=== PATIENT | male | born 1985 | race Caucasian/White ===

== ENCOUNTER 2017-01-28 17:02 | Emergency (ER) | payer BC ==
[2017-01-28] MEDS ORDERED: Sodium Chloride 0.9% 10 ML Syringe FLUSH PRN (18:14)
[2017-01-28] MEDS ORDERED: Sodium Chloride 0.9% 1,000 ML IV ONE (18:14)
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
== END 2017-01-28 21:00 | disposition home or self-care (01) ==
LOC: JD.ED 17:02
DX: F10.120 Alcohol abuse with intoxication, uncomplicated (principal); I10 Essential (primary) hypertension; Z79.899 Other long term (current) drug therapy
CPT/HCPCS: 36415; 80053; 85025; 96360; 99284; G0480; J7040

== ENCOUNTER 2017-06-27 06:31 | Emergency (ER) | payer BC ==
[2017-06-27] MEDS ORDERED: Sodium Chloride 0.9% 500 ML IV ONE ×2 (07:24→08:30)
[2017-06-27] MEDS ORDERED: Ondansetron 4 MG/2 ML SDV IVPUSH ONE (07:24)
[2017-06-27] MEDS ORDERED: LORazepam 2 MG/ML SDV IVPUSH ONE (07:24)
[2017-06-27] MEDS ORDERED: Sodium Chloride 0.9% 10 ML Syringe FLUSH PRN (07:25)
--- NOTE | 2017-06-27 08:26 | EDM.PDOC ---
ED HPI GENERAL MEDICAL PROBLEM - General Chief Complaint: General Stated Complaint: SYNCOPE THIS AM/SHAKING Time Seen by Provider: 06/27/17 07:10 Source of Information: Reports: Patient, RN Notes Reviewed - History of Present Illness INITIAL COMMENTS - FREE TEXT/NARRATIVE: 32-year-old male comes in feeling weak, dizzy, shaky. He left for work shortly before 6. 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 Ona like he was about to pass out. He did manage to send a message to his . When she arrived he was pale, shaky, nauseated, vomited once. No chest pain but he was somewhat short of breath. He did get some numbness and tingling of his hands and feet. No major abdominal pain or cramping at this time. He has not been coughing any more than usual. He was concerned about possible stroke. He has no headache, major neck or back discomfort. - Related Data Allergies Allergy/AdvReac Type Severity Reaction Status Date / Time No Known Allergies Allergy Verified 06/27/17 06:35 Home Meds: Home Meds Lisinopril/Hydrochlorothiazide [Lisinopril-Hctz 10-12.5 mg Tab] 1 tab PO DAILY 06/27/17 [History] Sertraline HCl 150 mg PO DAILY 06/27/17 [History] hydrOXYzine Pamoate [Hydroxyzine Pamoate] 25 mg PO DAILY 06/27/17 [History] Past Medical History Cardiovascular History: Reports: Hypertension Respiratory History: Reports: Asthma Psychiatric History: Reports: Anxiety Social & Family History - Tobacco Use Smoking Status *Q: Unknown Ever Smoked - Recreational Drug Use Recreational Drug Use: Yes Drug Use in Last 12 Months: No ED ROS GENERAL - Review of Systems Review Of Systems: See Below Constitutional: Denies: Fever, Chills HEENT: Denies: Sinus Problem, Throat Pain Respiratory: Reports: Shortness of Breath (No better) Cardiovascular: Denies: Chest Pain GI/Abdominal: Reports: Nausea, Vomiting. Denies: Abdominal Pain Musculoskeletal: Denies: Neck Pain, Arm Pain, Back Pain Skin: Denies: Rash Neurological: Reports: Dizziness, Numbness (Bilateral hands and feet), Weakness (Generalized). Denies: Headache ED EXAM, GENERAL - Physical Exam Exam: See Below General Appearance: Alert, Anxious, Moderate Distress Eye Exam: Bilateral Eye: PERRL Throat/Mouth: Normal Inspection Head: No: Facial Swelling Neck: Supple, Full Range of Motion Respiratory/Chest: No Respiratory Distress, Lungs Clear, Normal Breath Sounds Cardiovascular: Regular Rate, Rhythm GI/Abdominal: Soft, Non-Tender Extremities: Normal Inspection, Normal Range of Motion Neurological: Alert, Oriented, No Motor/Sensory Deficits, Other (Mild resting tremor, finger to nose without difficulty) Skin Exam: Warm, Dry, Normal Color EKG INTERPRETATION EKG Date: 06/27/17 Rhythm: NSR [place]: Normal P-Wave: Present QRS: Other (Slight ST elevation in V2 and V3) Course - Vital Signs Last Recorded V/S: Last Vital Signs Temp 97.5 F 06/27/17 06:40 Pulse 90 06/27/17 06:40 Resp 18 06/27/17 06:40 BP 149/90 H 06/27/17 06:40 Pulse Ox 98 06/27/17 06:40 - Orders/Labs/Meds Orders: Active Orders 24 hr Category Date Time Status EKG 12 Lead [EKG Documentation Completion] [RC] STAT Care 06/27/17 07:24 Active Peripheral IV Care [RC] . DIRECTED Care 06/27/17 07:25 Active Sodium Chloride 0.9% [Saline Flush] Med 06/27/17 07:25 Active 10 ml FLUSH ASDIRECTED PRN Peripheral IV Insertion Adult [OM.PC] Stat Oth 06/27/17 07:24 Ordered Medication Orders Sodium Chloride (Saline Flush) 10 ml FLUSH ASDIRECTED PRN PRN Reason: Keep Vein Open Last Admin: 06/27/17 07:38 Dose: 10 ml Labs: Laboratory Tests 06/27/17 06/27/17 Range/Units 07:38 07:38 WBC 10.75 H (4.23-9.07) K/mm3 RBC 5.69 (4.63-6.08) M/mm3 Hgb 17.0 (13.7-17.5) gm/L Hct 47.6 (40.1-51.0) % MCV 83.7 (79.0-92.2) fl MCH 29.9 (25.7-32.2) pg MCHC 35.7 H (32.2-35.5) g/dl RDW Std Deviation 40.2 (35.1-43.9) fL Plt Count 241 (163-337) K/mm3 MPV 8.5 L (9.4-12.3) fl Neut % (Auto) 81.9 H (34.0-67.9) % Lymph % (Auto) 9.0 L (21.8-53.1) % [place] % (Auto) 8.3 (5.3-12.2) % Eos % (Auto) 0.2 L (0.8-7.0) Baso % (Auto) 0.3 (0.1-1.2) % Neut # (Auto) 8.81 H (1.78-5.38) K/mm3 Lymph # (Auto) 0.97 L (1.32-3.57) K/mm3 [place] # (Auto) 0.89 H (0.30-0.82) K/mm3 Eos # (Auto) 0.02 L (0.04-0.54) K/mm3 Baso # (Auto) 0.03 (0.01-0.08) K/mm3 Manual Slide Review Abnormal smear Sodium 136 (136-145) mEq/L Potassium 3.5 (3.5-5.1) mEq/L Chloride 98 (98-107) mEq/L Carbon Dioxide 22 (21-32) mEq/L Anion Gap 19.5 H (5-15) BUN 9 (7-18) mg/dL Creatinine 1.0 (0.7-1.3) mg/dL Est Cr Clr Drug Dosing TNP Estimated GFR (MDRD) > 60 (>60) mL/min BUN/Creatinine Ratio 9.0 L (14-18) Glucose 134 H (74-106) mg/dL Calcium 9.3 (8.5-10.1) mg/dL Total Bilirubin 0.8 (0.2-1.0) mg/dL AST 77 H (15-37) U/L ALT 84 H (16-63) U/L Alkaline Phosphatase 117 H (46-116) U/L Total Protein 8.1 (6.4-8.2) g/dl Albumin 4.0 (3.4-5.0) g/dl Globulin 4.1 gm/dL Albumin/Globulin Ratio 1.0 (1-2) Meds: Medications Generic Name Dose Route Start Last Admin Trade Name Freq PRN Reason Stop Dose Admin Sodium Chloride 10 ml 06/27/17 07:25 06/27/17 07:38 Saline Flush FLUSH 10 ml ASDIRECTED PRN Administration Keep Vein Open Discontinued Medications Generic Name Dose Route Start Last Admin Trade Name Eulalio PRN Reason Stop Dose Admin Sodium Chloride 500 mls @ 999 mls/hr 06/27/17 07:24 06/27/17 07:45 Normal Saline IV 06/27/17 07:54 999 mls/hr .BOLUS ONE Administration Sodium Chloride 500 mls @ 999 mls/hr 06/27/17 08:30 Normal Saline IV 06/27/17 09:00 .BOLUS ONE Lorazepam 0.5 mg 06/27/17 07:24 06/27/17 07:43 Ativan IVPUSH 06/27/17 07:25 0.5 mg ONETIME ONE Administration Ondansetron HCl 4 mg 06/27/17 07:24 06/27/17 07:40 Zofran IVPUSH 06/27/17 07:25 4 mg ONETIME ONE Administration - Re-Assessments/Exams Free Text/Narrative Re-Assessment/Exam: 06/27/17 09:01 Labs came back showing that he was moderately dehydrated, bicarbonate low anion gap elevated, LFTs also mildly elevated. We have given 1 L of fluid. He was worried about possible stroke do not see any sign of that he likely had syncope or near syncope followed by panic attack. EKG was normal, cardiac monitors been showing sinus rhythm rate in the 90s, discharge instructions as documented. Departure - Departure Time of Disposition: 09:03 Disposition: Home, Self-Care 01 Clinical Impression: Panic attack Syncope Qualifiers: Syncope type: unspecified Qualified Code(s): R55 - Syncope and collapse - Discharge Information Instructions: Panic Attacks, [id number], Syncope, [id number] Referrals: Charissa Ochoa PA-C [Primary Care Provider] - Forms: ED Department Discharge, ED Return to Work/School Form Additional Instructions: Rest, continue to drink plenty of water, try eat regular healthy balanced diet, your regular exercise program, continue current medications as prescribed, follow up with Chairssa at clinic later this week or early next week. Return to ED as needed if symptoms worsening in any way. - My Orders Last 24 Hours: My Active Orders 06/27/17 07:24 EKG 12 Lead [EKG Documentation Completion] [RC] STAT Peripheral IV Insertion Adult [OM.PC] Stat 06/27/17 07:25 Peripheral IV Care [RC] . DIRECTED Sodium Chloride 0.9% [Saline Flush] 10 ml FLUSH ASDIRECTED PRN - Assessment/Plan Last 24 Hours: My Active Orders 06/27/17 07:24 EKG 12 Lead [EKG Documentation Completion] [RC] STAT Peripheral IV Insertion Adult [OM.PC] Stat 06/27/17 07:25 Peripheral IV Care [RC] . DIRECTED Sodium Chloride 0.9% [Saline Flush] 10 ml FLUSH ASDIRECTED PRN
== END 2017-06-27 09:15 | disposition home or self-care (01) ==
LOC: JD.ED 06:31
DX: R55 Syncope and collapse (principal); F41.0 Panic disorder [episodic paroxysmal anxiety]; I10 Essential (primary) hypertension; Z79.899 Other long term (current) drug therapy
CPT/HCPCS: 36415; 80053; 82962; 85025; 93005; 96361; 96374; 96375; 99284; J2060; J2405; J7040; J7050; 93010

== ENCOUNTER 2019-12-17 17:39 | Emergency (ER) | payer SELFPAY ==
--- NOTE | 2019-12-17 18:10 | EDM.PDOC ---
ED HPI GENERAL MEDICAL PROBLEM - General Chief Complaint: Behavioral/Psych Stated Complaint: DEPRESSION Time Seen by Provider: 12/17/19 17:56 Source of Information: Reports: Patient, RN Notes Reviewed History Limitations: Reports: No Limitations - History of Present Illness INITIAL COMMENTS - FREE TEXT/NARRATIVE: Patient is a 34 year old male who is brought to the ED for his depression. Patient notes he was brought here by the police. He states that he is also acutely intoxicated from alcohol. He notes that he is going through a divorce, that is rather rough. His soon-to-be ex- keeps telling him that he should "just take himself out". He states that he did think about this today, but he had no plans to do as such. He notes that he works in the [employer], and works 8 days in a row and then comes home 6 days and drinks heavily when he is home. He drinks about a pint of whiskey a day along with a 12 pack of beer. Patient states that he can stop drinking. He is usually just fine with that too. He does have a history of depression, and is on Ativan and Wellbutrin, he ran out of his medications a few days ago, but recently refilled these and took some ta blets of his Ativan this morning. He states that he knows he is depressed, but he does not want to be dependent on medications, he states that he would like to get off of these at some point. Patient states that he is not suicidal although he did have thoughts of this recently. He notes that his last alcohol intake was at about 3 PM. He does state that when he is not drinking, he usually does not think about killing himself. He is not complaining of any fevers or chills, cough or shortness of breath, he does have a history of asthma, but states his albuterol usually takes care of of any shortness of breath that he does get. - Related Data Allergies Allergy/AdvReac Type Severity Reaction Status Date / Time No Known Allergies Allergy Verified 12/17/19 17:52 Home Meds: Home Meds Lisinopril/Hydrochlorothiazide [Lisinopril-Hctz 10-12.5 mg Tab] 1 tab PO DAILY 06/27/17 [History] Albuterol [Proventil HFA] 1 inh INH Q4HR PRN 12/17/19 [History] LORazepam [Ativan] 0.5 mg PO BID 12/17/19 [History] buPROPion [Wellbutrin] 0 mg PO DAILY 12/17/19 [History] Past Medical History Cardiovascular History: Reports: Hypertension Respiratory History: Reports: Asthma Psychiatric History: Reports: Addiction, Anxiety, Depression Endocrine/Metabolic History: Reports: Obesity/BMI 30+ Social & Family History - Tobacco Use Smoking Status *Q: Never Smoker - Caffeine Use Caffeine Use: Reports: Energy Drinks - Recreational Drug Use Recreational Drug Use: No ED ROS GENERAL - Review of Systems Review Of Systems: Comprehensive ROS is negative, except as noted in HPI. ED EXAM, GENERAL - Physical Exam Exam: See Below Exam Limited By: No Limitations General Appearance: Alert, WD/WN, No Apparent Distress (pt is acutely intoxicated but answers appropriately) Eye Exam: Bilateral Eye: EOMI, Normal Inspection Respiratory/Chest: No Respiratory Distress, Lungs Clear, Normal Breath Sounds, No Accessory Muscle Use, Chest Non-Tender Cardiovascular: Normal Peripheral Pulses, Regular Rate, Rhythm, No Edema, No Murmur Peripheral Pulses: 2+: Radial (L), Radial (R) GI/Abdominal: Normal Bowel Sounds, Soft, Non-Tender, No Distention, No Mass Extremities: Normal Inspection, Normal Capillary Refill Neurological: Alert, Oriented, No Motor/Sensory Deficits Psychiatric: Normal Affect, Normal Mood Skin Exam: Warm, Dry, Intact, Normal Color, No Rash Course - Vital Signs Last Recorded V/S: Last Vital Signs Temp 97.9 F 12/17/19 17:48 Pulse 113 H 12/17/19 17:48 Resp 18 12/17/19 17:48 BP 144/97 H 12/17/19 17:48 Pulse Ox 95 12/17/19 17:48 - Orders/Labs/Meds Orders: Active Orders 24 hr Category Date Time Status Peripheral IV Care [RC] . DIRECTED Care 12/17/19 19:02 Ordered Sodium Chloride 0.9% [Normal Saline] 1,000 ml Med 12/17/19 19:02 Ordered IV ONETIME Sodium Chloride 0.9% [Saline Flush] Med 12/17/19 19:02 Ordered 10 ml FLUSH ASDIRECTED PRN Peripheral IV Insertion Adult [OM.PC] Stat Oth 12/17/19 19:02 Ordered Medication Orders Sodium Chloride (Normal Saline) 1,000 mls @ 200 mls/hr IV ONETIME ONE Stop: 12/18/19 00:01 Last Admin: 12/17/19 19:20 Dose: 200 mls/hr Documented by: [email or web address] Sodium Chloride (Saline Flush) 10 ml FLUSH ASDIRECTED PRN PRN Reason: Keep Vein Open Last Admin: 12/17/19 19:20 Dose: 10 ml Documented by: [id number] Labs: Laboratory Tests 12/17/19 12/17/19 12/17/19 Range/Units 19:20 19:20 19:20 WBC 7.11 (4.23-9.07) K/mm3 RBC 5.93 (4.63-6.08) M/mm3 Hgb 17.6 H (13.7-17.5) gm/dl Hct 51.3 H (40.1-51.0) % MCV 86.5 (79.0-92.2) fl MCH 29.7 (25.7-32.2) pg MCHC 34.3 (32.2-35.5) g/dl RDW Std Deviation 43.1 (35.1-43.9) fL Plt Count 286 (163-337) K/mm3 MPV 8.7 L (9.4-12.3) fl Neut % (Auto) 40.9 (34.0-67.9) % Lymph % (Auto) 44.3 (21.8-53.1) % Bucks % (Auto) 13.1 H (5.3-12.2) % Eos % (Auto) 1.0 (0.8-7.0) Baso % (Auto) 0.6 (0.1-1.2) % Neut # (Auto) 2.91 (1.78-5.38) K/mm3 Lymph # (Auto) 3.15 (1.32-3.57) K/mm3 Bucks # (Auto) 0.93 H (0.30-0.82) K/mm3 Eos # (Auto) 0.07 (0.04-0.54) K/mm3 Baso # (Auto) 0.04 (0.01-0.08) K/mm3 PT 10.9 (9.7-11.7) SECONDS INR 1.02 Sodium 144 (136-145) mEq/L Potassium 3.3 L (3.5-5.1) mEq/L Chloride 104 (98-107) mEq/L Carbon Dioxide 26 (21-32) mEq/L Anion Gap 17.3 H (5-15) BUN 5 L (7-18) mg/dL Creatinine 1.0 (0.7-1.3) mg/dL Est Cr Clr Drug Dosing 119.88 mL/min Estimated GFR (MDRD) > 60 (>60) mL/min BUN/Creatinine Ratio 5.0 L (14-18) Glucose 139 H (74-106) mg/dL Calcium 8.7 (8.5-10.1) mg/dL Magnesium 1.6 L (1.8-2.4) mg/dl Total Bilirubin 0.4 (0.2-1.0) mg/dL AST 70 H (15-37) U/L ALT 182 H (16-63) U/L Alkaline Phosphatase 109 (46-116) U/L Total Protein 7.9 (6.4-8.2) g/dl Albumin 3.6 (3.4-5.0) g/dl Globulin 4.3 gm/dL Albumin/Globulin Ratio 0.8 L (1-2) Ethyl Alcohol 0.34 (0.00) gm% Meds: Medications Generic Name Dose Route Start Last Admin Trade Name Freq PRN Reason Stop Dose Admin Sodium Chloride 1,000 mls @ 200 mls/hr 12/17/19 19:02 12/17/19 19:20 Normal Saline IV 12/18/19 00:01 200 mls/hr ONETIME ONE Administration Sodium Chloride 10 ml 12/17/19 19:02 12/17/19 19:20 Saline Flush FLUSH 10 ml ASDIRECTED PRN Administration Keep Vein Open Discontinued Medications Generic Name Dose Route Start Last Admin Trade Name Freq PRN Reason Stop Dose Admin Folic Acid 1 mg 12/17/19 19:02 12/17/19 19:20 Folic Acid PO 12/17/19 19:03 1 mg ONETIME ONE Administration Lorazepam 1 mg 12/17/19 19:02 12/17/19 19:20 Ativan IVPUSH 12/17/19 19:03 1 mg ONETIME ONE Administration Metoclopramide HCl 10 mg 12/17/19 19:02 10/06/20 19:20 Reglan IVPUSH 12/17/19 19:03 10 mg ONETIME ONE Administration Thiamine HCl 100 mg 12/17/19 19:02 12/17/19 19:20 Vitamin B-1 PO 12/17/19 19:03 100 mg ONETIME ONE Administration - Re-Assessments/Exams Free Text/Narrative Re-Assessment/Exam: 12/17/19 19:09 Patient presents to the ED for the evaluation of his depression and alcoholism. He is aware that drinking alcohol is a problem for him, he would like to stop at some point, but he would also like to get off of his depression medications, I told him that it is a good idea to keep using these while he is having this "rough patch" and going through his divorce. He seems to agree. At this time we will have an IV placed, give him some fluids, check basic labs, give him 1 mg Ativan, something for nausea, and monitor him for a few hours. States he does not really have anywhere to go tonight. 12/17/19 20:58 Patient was re-assessed at bedside, he is sleeping rather hard. I have told nursing staff that if he wakes up and wants to go home, that is fine with me. His labs had no worrisome abnormalities. Departure - Departure Time of Disposition: 20:59 Disposition: Home, Self-Care 01 Condition: Good Clinical Impression: Alcohol intoxication Qualifiers: Complication of substance-induced condition: uncomplicated Qualified Code(s): F10.920 - Alcohol use, unspecified with intoxication, uncomplicated Depression Qualifiers: Depression Type: unspecified Qualified Code(s): F32.9 - Major depressive disorder, single episode, unspecified - Discharge Information *PRESCRIPTION DRUG MONITORING PROGRAM REVIEWED*: No *COPY OF PRESCRIPTION DRUG MONITORING REPORT IN PATIENT BAM: No Instructions: Living With Depression Referrals: Charissa Ochoa PA-C [Primary Care Provider] - Forms: ED Department Discharge Additional Instructions: You were evaluated in the ER today for your alcohol intoxication and your depression. You are not deemed a harm to yourself at this time although you are intoxicated from alcohol. You are able to answer questions appropriately at this time. I do recommend you go home, try to refrain from drinking tonight, and for the next few days as well, to see if this helps lighten your mood a little. Please continue to take all your prior medications as previously prescribed, until you get through this "rough patch". Recommend you keep talking to your counselor weekly, as this seems to help you with your feelings. Please return to the ER at any time if your symptoms change or worsen. Sepsis Event Note (ED) - Evaluation Sepsis Screening Result: No Definite Risk - Focused Exam Vital Signs: Vital Signs Temp Pulse Resp BP Pulse Ox 12/17/19 17:48 97.9 F 113 H 18 144/97 H 95 - My Orders Last 24 Hours: My Active Orders 12/17/19 19:02 Peripheral IV Care [RC] . DIRECTED Sodium Chloride 0.9% [Normal Saline] 1,000 ml IV ONETIME Sodium Chloride 0.9% [Saline Flush] 10 ml FLUSH ASDIRECTED PRN Peripheral IV Insertion Adult [OM.PC] Stat - Assessment/Plan Last 24 Hours: My Active Orders 12/17/19 19:02 Peripheral IV Care [RC] . DIRECTED Sodium Chloride 0.9% [Normal Saline] 1,000 ml IV ONETIME Sodium Chloride 0.9% [Saline Flush] 10 ml FLUSH ASDIRECTED PRN Peripheral IV Insertion Adult [OM.PC] Stat
[2019-12-17] MEDS ORDERED: Sodium Chloride 0.9% 10 ML Syringe FLUSH PRN (19:02)
[2019-12-17] MEDS ORDERED: Folic Acid 1 MG Tab PO ONE (19:02)
[2019-12-17] MEDS ORDERED: Thiamine 100 MG Tab PO ONE (19:02)
[2019-12-17] MEDS ORDERED: LORazepam 2 MG/ML SDV IVPUSH ONE (19:02)
[2019-12-17] MEDS ORDERED: Metoclopramide 10 MG/2 ML SDV IVPUSH ONE (19:02)
[2019-12-17] MEDS ORDERED: Sodium Chloride 0.9% 1,000 ML IV ONE (19:02)
== END 2019-12-18 00:10 | disposition home or self-care (01) ==
LOC: JD.ED 17:39
DX: F32.9 Major depressive disorder, single episode, unspecified (principal); F10.120 Alcohol abuse with intoxication, uncomplicated; Y90.8 Blood alcohol level of 240 mg/100 ml or more; I10 Essential (primary) hypertension; J45.909 Unspecified asthma, uncomplicated; F41.9 Anxiety disorder, unspecified; E66.9 Obesity, unspecified; Z68.32 Body mass index [BMI] 32.0-32.9, adult
CPT/HCPCS: 36415; 80053; 80307; 83735; 85025; 85610; 96361; 96374; 96375; 99284; A9270; J2060; J2765; J7030

== ENCOUNTER 2021-12-29 07:57 | Emergency (ER) | payer SELFPAY | END 2021-12-29 09:16 | LOC: JD.ED 07:57 | DX: Z53.21 Procedure and treatment not carried out due to patient leaving prior to being seen by health care provider (principal) ==

== ENCOUNTER 2021-12-31 15:43 | Emergency (ER) | payer SELFPAY ==
[2021-12-31] MEDS ORDERED: Sodium Chloride 0.9% 1,000 ML IV ONE ×2 (18:08→19:14)
[2021-12-31] MEDS ORDERED: LORazepam 2 MG/ML SDV IVPUSH ONE (18:08)
[2021-12-31] MEDS ORDERED: Sodium Chloride 0.9% 10 ML Syringe FLUSH PRN (18:08)
[2021-12-31] MEDS ORDERED: Potassium Chloride 20 MEQ Tab.ER PO ONE (20:13)
== END 2021-12-31 21:37 | disposition home or self-care (01) ==
LOC: JD.ED 15:43
DX: F10.930 Alcohol use, unspecified with withdrawal, uncomplicated (principal); I10 Essential (primary) hypertension; E66.9 Obesity, unspecified; Z68.32 Body mass index [BMI] 32.0-32.9, adult
CPT/HCPCS: 36415; 73030; 80053; 80143; 80179; 80306; 80307; 81001; 83735; 84443; 85025; 93005; 96361; 96374; 99285; A9270; J2060; J3490; J7030

== ENCOUNTER 2023-06-18 11:21 | Emergency (ER) | payer OTHER ==
[2023-06-18] MEDS: Acetaminophen 325 MG Tab PO ONE (12:39)
[2023-06-18 12:44] LABS: BASOPHILS PERCENT AUTO 0.7 % (0.0-1.0); EOSINOPHILS ABSOLUTE AUTO 0.1 K/mm3 (0.0-0.4); EOSINOPHILS PERCENT AUTO 0.8 % (0.0-6.0); HEMATOCRIT 49.4 % (42.0-52.0); HEMOGLOBIN 16.9 gm/dl (14.0-18.0); IMMATURE GRAN ABSOLUTE AUTO 0.02 K/mm3 (0.00-0.05); IMMATURE GRAN PERCENT AUTO 0.3 % (0.0-0.4); LYMPHOCYTES ABSOLUTE AUTO 1.8 K/mm3 (1.0-4.8); LYMPHOCYTES PERCENT AUTO 28.7 % (24.0-44.0); MEAN CORPUSCULAR HEMOGLOBIN 29.5 pg (28.0-32.0); MEAN CORPUSCULAR HGB CONC 34.2 g/dl (32.0-36.0); MEAN CORPUSCULAR VOLUME 86.2 fl (83.0-99.0); MEAN PLATELET VOLUME 8.5 fl (9.4-12.4); MONOCYTES ABSOLUTE AUTO 0.4 K/mm3 (0.0-0.8); MONOCYTES PERCENT AUTO 7.2 % (0.0-8.0); NEUTROPHILS ABSOLUTE AUTO 3.8 K/mm3 (1.8-7.7); NEUTROPHILS PERCENT AUTO 62.3 % (41.0-71.0); PLATELET COUNT,PLT 302 K/mm3 (150-400); RED BLOOD CELL COUNT 5.73 M/mm3 (4.52-5.90); WHITE BLOOD CELL COUNT,WBC 6.13 K/mm3 (3.9-11.3)
[2023-06-18 13:11] LABS: A/G RATIO 0.9 (1-2); ALBUMIN 3.6 g/dl (3.4-5.0); ANION GAP 16.8 (5-15); BILIRUBIN TOTAL 0.6 mg/dL (0.2-1.0); BUN/CREATININE RATIO 6.3 (14-18); CALCIUM 8.8 mg/dL (8.5-10.1); CREATININE 0.8 mg/dL (0.7-1.3); EST CRCL DRUG DOSING (CG) 144.14 mL/min; POTASSIUM,K 3.8 mEq/L (3.5-5.1); PROTEIN TOTAL,TP 7.6 g/dl (6.4-8.2)
[2023-06-18] MEDS: Sodium Chloride 0.9% 100 ML IV SCH (13:52)
[2023-06-18] MEDS: Iopamidol 755 Mg/ML 100 ML Bottle IVPUSH ONE (13:52)
[2023-06-18] MEDS: Sodium Chloride 0.9% 1,000 ML IV SCH (14:40)
[2023-06-18] MEDS: Magnesium Sulfate/Water 2 GM in Premix Bag 1 BAG IV ONE (14:41)
== END 2023-06-18 16:05 | disposition home or self-care (01) ==
LOC: JD.ED 11:21
DX: R55 Syncope and collapse (principal); E83.42 Hypomagnesemia; I10 Essential (primary) hypertension; E66.9 Obesity, unspecified; Z68.29 Body mass index [BMI] 29.0-29.9, adult; Z79.899 Other long term (current) drug therapy
CPT/HCPCS: 36415; 70450; 71275; 80053; 83735; 84484; 85025; 85379; 93005; 96365; 99284; A9270; J3475; J3490; J7030; Q9967; 93010

== ENCOUNTER 2023-06-20 17:47 | Emergency (ER) | payer OTHER ==
[2023-06-20 18:39] LABS: BARBITURATE SCREEN,URINE NEGATIVE (CUTOFF=200); BENZODIAZEPINES SCREEN,URINE NEGATIVE (CUTOFF=150); BUPRENORPHINE SCREEN,URINE NEGATIVE (CUTOFF=10); METHADONE SCREEN, URINE NEGATIVE (CUT0FF=200); METHAMPHETAMINES SCREEN, URINE NEGATIVE (CUTOFF=500); OXYCODONE SCREEN,URINE NEGATIVE (CUT0FF=100); THC SCREEN,URINE 20 NG/ML NEGATIVE (CUTOFF=50)
[2023-06-20 18:45] LABS: AMPHETAMINES SCREEN, URINE NEGATIVE (CUTOFF=500)
[2023-06-20 18:54] LABS: HEMATOCRIT 49.1 % (42.0-52.0); HEMOGLOBIN 16.9 gm/dl (14.0-18.0); MEAN CORPUSCULAR HEMOGLOBIN 29.2 pg (28.0-32.0); MEAN CORPUSCULAR HGB CONC 34.4 g/dl (32.0-36.0); MEAN CORPUSCULAR VOLUME 84.8 fl (83.0-99.0); MEAN PLATELET VOLUME 8.2 fl (9.4-12.4); PLATELET COUNT,PLT 192 K/mm3 (150-400); RED BLOOD CELL COUNT 5.79 M/mm3 (4.52-5.90); WHITE BLOOD CELL COUNT,WBC 7.71 K/mm3 (3.9-11.3)
[2023-06-20 19:23] LABS: ALBUMIN 3.7 g/dl (3.4-5.0); ANION GAP 16.3 (5-15); BILIRUBIN TOTAL 0.6 mg/dL (0.2-1.0); BUN/CREATININE RATIO 2.5 (14-18); CALCIUM 8.9 mg/dL (8.5-10.1); CREATININE 0.8 mg/dL (0.7-1.3); EST CRCL DRUG DOSING (CG) 144.14 mL/min; ETHANOL BLOOD MEDICAL 0.41 gm% (0.00); POTASSIUM,K 3.3 mEq/L (3.5-5.1); PROTEIN TOTAL,TP 7.6 g/dl (6.4-8.2); TSH 1.001 uIU/mL (0.358-3.74)
[2023-06-20] MEDS: Sodium Chloride 0.9% 1,000 ML IV STA (19:50)
[2023-06-20] MEDS: diphenhydrAMINE 50 MG/ML SDV IVPUSH ONE (19:51)
[2023-06-20 20:04] LABS: BAND PERCENT MAN 0 % (0-10); BASOPHILS PERCENT MAN 0 (0.2-1.2); EOSINOPHILS PERCENT MAN 0 % (0.8-7.0); LYMPHOCYTES % ATYPICAL MANUAL 0 %; LYMPHOCYTES PERCENT MAN 24 % (20-40); MONOCYTES PERCENT MAN 2 % (2-10)
[2023-06-20 20:05] LABS: PLATELET COUNT ESTIMATE ADEQUATE
[2023-06-21] MEDS: LORazepam 1 MG Tab PO ONE (07:58)
== END 2023-06-21 09:15 | disposition home or self-care (01) ==
LOC: JD.ED 17:47
DX: F10.129 Alcohol abuse with intoxication, unspecified (principal); I10 Essential (primary) hypertension; J45.909 Unspecified asthma, uncomplicated; E66.9 Obesity, unspecified; Z79.899 Other long term (current) drug therapy; Y90.2 Blood alcohol level of 40-59 mg/100 ml; Z68.29 Body mass index [BMI] 29.0-29.9, adult
CPT/HCPCS: 36415; 80053; 80143; 80179; 80306; 80307; 84443; 85007; 85027; 93005; 96361; 96374; 99284; A9270; J1200; J7030; 93010; 99283

== ENCOUNTER 2023-06-26 10:41 | Emergency (ER) | payer OTHER ==
[2023-06-26] MEDS: Sodium Chloride 0.9% 10 ML Syringe FLUSH PRN (11:40)
[2023-06-26 11:54] LABS: BASOPHILS PERCENT AUTO 0.6 % (0.0-1.0); EOSINOPHILS ABSOLUTE AUTO 0.1 K/mm3 (0.0-0.4); EOSINOPHILS PERCENT AUTO 1.4 % (0.0-6.0); HEMATOCRIT 53.5 % (42.0-52.0); HEMOGLOBIN 18.2 gm/dl (14.0-18.0); IMMATURE GRAN ABSOLUTE AUTO 0.01 K/mm3 (0.00-0.05); IMMATURE GRAN PERCENT AUTO 0.2 % (0.0-0.4); LYMPHOCYTES ABSOLUTE AUTO 1.2 K/mm3 (1.0-4.8); LYMPHOCYTES PERCENT AUTO 17.8 % (24.0-44.0); MEAN CORPUSCULAR HEMOGLOBIN 29.6 pg (28.0-32.0); MEAN CORPUSCULAR VOLUME 87.1 fl (83.0-99.0); MEAN PLATELET VOLUME 8.3 fl (9.4-12.4); MONOCYTES ABSOLUTE AUTO 0.8 K/mm3 (0.0-0.8); MONOCYTES PERCENT AUTO 12.5 % (0.0-8.0); NEUTROPHILS ABSOLUTE AUTO 4.4 K/mm3 (1.8-7.7); NEUTROPHILS PERCENT AUTO 67.5 % (41.0-71.0); PLATELET COUNT,PLT 147 K/mm3 (150-400); RED BLOOD CELL COUNT 6.14 M/mm3 (4.52-5.90); WHITE BLOOD CELL COUNT,WBC 6.56 K/mm3 (3.9-11.3)
[2023-06-26 11:57] LABS: APPEARANCE,URINE CLEAR (Clear); BILIRUBIN,URINE NEGATIVE (Negative); COLOR,URINE LIGHT YELLOW (Yellow); GLUCOSE,URINE NEGATIVE (Negative); KETONES,URINE NEGATIVE (Negative); LEUKOCYTE ESTERASE,URINE NEGATIVE (Negative); NITRITE,URINE NEGATIVE (Negative); OCCULT BLOOD,URINE NEGATIVE (Negative); PROTEIN,URINE NEGATIVE (Negative); UROBILINOGEN,URINE 0.2 (0.2-1.0)
[2023-06-26] MEDS: Lactated Ringers 1,000 ML IV ONE (12:00)
[2023-06-26] MEDS: hydrOXYzine HCl 25 MG Tab PO ONE ×3 (12:04→20:43)
[2023-06-26 12:14] LABS: AMPHETAMINES SCREEN, URINE NEGATIVE (CUTOFF=500); BARBITURATE SCREEN,URINE NEGATIVE (CUTOFF=200); BENZODIAZEPINES SCREEN,URINE PRESUMPTIVE POSITIVE (CUTOFF=150); BUPRENORPHINE SCREEN,URINE NEGATIVE (CUTOFF=10); METHADONE SCREEN, URINE NEGATIVE (CUT0FF=200); METHAMPHETAMINES SCREEN, URINE NEGATIVE (CUTOFF=500); OXYCODONE SCREEN,URINE NEGATIVE (CUT0FF=100); THC SCREEN,URINE 20 NG/ML NEGATIVE (CUTOFF=50)
[2023-06-26 12:15] LABS: A/G RATIO 0.9 (1-2); ALANINE AMINOTRANSFERASE,ALT 233 U/L (16-63); ALBUMIN 3.8 g/dl (3.4-5.0); ALKALINE PHOSPHATASE 241 U/L (46-116); ANION GAP 15.2 (5-15); ASPARTATE AMNIOTRANSFERASE,AST 177 U/L (15-37); BILIRUBIN TOTAL 0.6 mg/dL (0.2-1.0); BLOOD UREA NITROGEN,BUN 6 mg/dL (7-18); CALCIUM 8.8 mg/dL (8.5-10.1); CARBON DIOXIDE,CO2 28 mEq/L (21-32); CHLORIDE,CL 104 mEq/L (98-107); ESTIMATED GFR 98 mL/min (>60); ETHANOL BLOOD MEDICAL 0.28 gm% (0.00); GLUCOSE RANDOM 117 mg/dL (70-99); LIPASE 43 U/L (16-77); MAGNESIUM 1.6 mg/dL (1.8-2.4); POTASSIUM,K 3.2 mEq/L (3.5-5.1); PROTEIN TOTAL,TP 8.1 g/dl (6.4-8.2); SODIUM,NA 144 mEq/L (136-145)
[2023-06-26] MEDS: Lactated Ringers 1,000 ML IV SCH (17:09)
== END 2023-06-26 20:40 | disposition home or self-care (01) ==
LOC: JD.ED 10:41
DX: F10.220 Alcohol dependence with intoxication, uncomplicated (principal); J45.909 Unspecified asthma, uncomplicated; I10 Essential (primary) hypertension; E66.9 Obesity, unspecified; Z68.29 Body mass index [BMI] 29.0-29.9, adult; Z79.51 Long term (current) use of inhaled steroids; Z79.899 Other long term (current) drug therapy; Y90.9 Presence of alcohol in blood, level not specified
CPT/HCPCS: 36415; 80053; 80306; 80307; 81003; 83690; 83735; 85025; 96360; 96361; 99284; A9270; J3490; J7120